=== PATIENT | female | born 1970 | race African-American/Black ===

== ENCOUNTER 2020-03-26 15:12 | Outpatient (CLI) | payer MEDICARE ==
[2020-03-27 03:07] LABS: SARS-CoV-2 MS2 Positive; SARS-CoV-2 N Gene Negative; SARS-CoV-2 S Gene Negative; SARS-CoV-2 by NAA Not Detected (NotDetected); SARS-CoV-2 orf1ab Negative
== END 2020-03-26 15:13 | disposition home or self-care (01) ==
LOC: LABBT 15:12
PROVIDERS: ATTEND Specialist
DX: Z01.812 Encounter for preprocedural laboratory examination (principal); E66.09 Other obesity due to excess calories; Z20.828 Contact with and (suspected) exposure to other viral communicable diseases
CPT/HCPCS: 87635; U0003

== ENCOUNTER 2020-03-29 10:30 | Outpatient (CLI) | payer MEDICARE ==
--- NOTE | 2020-03-29 13:13 | RAD ---
EXAM: XR UGI Air Contrast PROVIDED CLINICAL HISTORY: Obesity. Patient reports hiatal hernia and gastroesophageal reflux. COMPARISON: None FINDINGS: Double contrast upper GI was performed in usual fashion. Esophagus demonstrates normal esophageal per istalsis. No mucosal irregularity is seen. There is no focal narrowing seen in the esophagus. No hiatal hernia is appreciated on this exam. No gastroesophageal reflux is noted during this exam. The stomach, duodenal bulb, duodenum, and visualized proximal small bowel have a normal appearance. Contrast is seen in the colon on overhead radiographs. D[employer] image demonstrates a nonspecific bowel gas pattern. Surgical clips overlie the right upper quad rant. No suspicious calcifications are seen. Osseous structures have a normal appearance. IMPRESSION: 1. Normal upper GI without hiatal hernia visualized, and no gastroesophageal reflux was seen during t he exam. 2. Contrast is seen in the colon on the overhead images obtained immediately after this exam.
== END 2020-03-29 10:31 | disposition home or self-care (01) ==
LOC: RAD 10:30
PROVIDERS: ATTEND Specialist
DX: E66.09 Other obesity due to excess calories (principal)
CPT/HCPCS: 36415; 74246; 80053; 80061; 82306; 82607; 82728; 82746; 83036; 83540; 83970; 84425; 84436; 84443; 84479; 84480; 85025; 86769

== ENCOUNTER 2020-04-12 13:59 | Outpatient (CLI) | payer MEDICARE | END 2020-04-12 14:00 | disposition home or self-care (01) | LOC: DTY/OP 13:59 | PROVIDERS: ATTEND Specialist | DX: Z01.818 Encounter for other preprocedural examination (principal); E66.01 Morbid (severe) obesity due to excess calories | CPT/HCPCS: 97802 ==

== ENCOUNTER 2020-07-15 12:40 | Outpatient (CLI) | payer MEDICARE ==
[2020-07-15 14:24] LABS: #Basophils 0.1 10x3/uL (0.0-0.2); #Eosinphils 0.1 10x3/uL (0.0-0.5); #Monocytes 0.6 10x3/uL (0.0-1.1); #Neutrophils 4.7 10x3/uL (1.5-8.4); %Basophils 0.7 % (0.0-2.0); %Eosinophils 1.5 % (0.0-6.0); %Lymphocytes 37.2 % (18.0-47.0); %Monocytes 6.9 % (0.0-10.0); %Neutrophils 53.4 % (40.0-75.0); Hemoglobin 12.6 g/dL (12.0-15.5); Mean Corpuscular HGB CONC 31.3 g/dL (32.0-36.0); Mean Corpuscular Hemoglobin 25.8 pg (27.0-33.0); Mean Corpuscular Volume 82.4 fl (81.6-98.3); Platelet Count 325 10x3/uL (150-450); RBC Distribution Width 15.3 % (11.5-14.5); Red Blood Cell (RBC) Count 4.89 10x6/uL (3.90-5.03); White Blood Cell (WBC) Count 8.9 10x3/uL (3.5-10.5)
[2020-07-15 14:48] LABS: Anion Gap 16 mmol/L (10-20); BUN (Urea Nitrogen) 10 mg/dL (7.0-18.7); Calc. Creatinine Clearance 0 mL/min (70-130); Calcium 9.3 mg/dL (7.8-10.44); Carbon Dioxide 23 mmol/L (22-29); Chloride 102 mmol/L (98-107); Glucose 89 mg/dL (70-105); Potassium 4.2 mmol/L (3.5-5.1); Sodium 137 mmol/L (136-145)
[2020-07-16 04:20] LABS: SARS-CoV-2 PCR by NAA Not Detected (NotDetected)
== END 2020-07-15 12:41 | disposition home or self-care (01) ==
LOC: LABBT 12:40
PROVIDERS: ATTEND Specialist
DX: Z01.812 Encounter for preprocedural laboratory examination (principal); Z20.822 Contact with and (suspected) exposure to COVID-19; E66.09 Other obesity due to excess calories; I10 Essential (primary) hypertension; Z68.36 Body mass index [BMI] 36.0-36.9, adult
CPT/HCPCS: 80048; 85025; U0003; U0005; 87635

== ENCOUNTER 2020-07-15 13:00 | Inpatient (IN) | payer MEDICARE ==
[2020-07-17 10:42] VITALS: BMI 39.2
[2020-07-18] MEDS ORDERED: cefOXitin Sodium/Dextrose 2 GM/50 ML BAG ONE (06:17)
[2020-07-18] MEDS ORDERED: Acetaminophen 500 MG TAB ONE (06:17)
[2020-07-18] MEDS ORDERED: Ketorolac Tromethamine 30 MG/ML VIAL ONE (06:17)
[2020-07-18] MEDS ORDERED: Fentanyl 100 MCG/2 ML VIAL ONE ×3 (06:25→11:11)
[2020-07-18] MEDS ORDERED: Dexmedetomidine 200 MCG/2 ML VIAL ONE (06:25)
[2020-07-18] MEDS ORDERED: Lidocaine 1% w/Epinephrine 1:100K 20 ML VIAL ONE (06:34)
[2020-07-18] MEDS ORDERED: Bupivacaine 0.25% HCL 30 ML VIAL ONE (06:34)
[2020-07-18] MEDS ORDERED: Midazolam HCl 2 mg/2 ml Vial ONE (07:21)
[2020-07-18] MEDS ORDERED: Glycopyrrolate 0.2 MG/ML 5 ML SYRINGE ONE ×2 (07:38)
[2020-07-18] MEDS ORDERED: PROPOFOL 200 MG/20 ML VIAL ONE (07:38)
[2020-07-18] MEDS ORDERED: Lidocaine 1% PF 5 ML VIAL ONE (07:38)
[2020-07-18] MEDS ORDERED: Ondansetron PF 4 MG/2 ML Vial ONE (07:38)
[2020-07-18] MEDS ORDERED: ePHEDrine 50 MG/ML VIAL ONE (07:38)
[2020-07-18] MEDS ORDERED: Dexamethasone 20 MG/5 ML VIAL ONE (07:38)
[2020-07-18] MEDS ORDERED: Rocuronium Bromide 10 MG/ML (10ML VIAL) ONE (07:38)
[2020-07-18] MEDS ORDERED: Dextrose 5% in Water 1,000 ML IV PRN (09:51)
[2020-07-18] MEDS ORDERED: Dextrose 50% Abboject 50 ML SYRINGE SLOW IVP PRN (09:51)
[2020-07-18] MEDS ORDERED: Promethazine HCl 25 MG/ML VIAL IM PRN (09:51)
[2020-07-18] MEDS ORDERED: hydrALAZINE 20 MG/ML VIAL SLOW IVP PRN (09:51)
[2020-07-18] MEDS ORDERED: diphenhydrAMINE 50 MG/ML VIAL IVP PRN (09:51)
[2020-07-18] MEDS ORDERED: Promethazine HCl 25 MG/ML VIAL ONE (10:01)
[2020-07-18] MEDS ORDERED: Pantoprazole 40 MG VIAL IVP SCH (10:15)
[2020-07-18] MEDS ORDERED: Carvedilol 3.125 MG TAB PO SCH (10:15)
[2020-07-18] MEDS ORDERED: Sodium Chloride 0.9% (PF) 10 ML VIAL FS PRN (10:15)
[2020-07-18] MEDS: Ketorolac Tromethamine 30 MG/ML VIAL IVP SCH ×3 (11:46→23:07)
[2020-07-18] MEDS: D5 1/2 NS w/20 mEq KCL 1,000 ML IV SCH ×2 (11:47→23:06)
[2020-07-18] MEDS: Hydrocodone-Acetamin 15 ML UDCUP PO PRN ×2 (13:41→18:26)
[2020-07-18] MEDS: Meperidine HCl/PF 25 MG/ML VIAL SLOW IVP PRN ×3 (13:48→20:14)
[2020-07-18] MEDS: Ondansetron PF 4 MG/2 ML Vial IVP PRN (13:48)
[2020-07-18] MEDS: Carvedilol 3.125 MG TAB PO SCH (20:14)
[2020-07-18] MEDS ORDERED: Enoxaparin Sodium 40 MG/0.4 ML SYRINGE SC SCH (21:00)
[2020-07-19] MEDS: Hydrocodone-Acetamin 15 ML UDCUP PO PRN ×3 (00:14→10:52)
[2020-07-19] MEDS: D5 1/2 NS w/20 mEq KCL 1,000 ML IV SCH ×2 (00:44→06:31)
[2020-07-19] MEDS: Ketorolac Tromethamine 30 MG/ML VIAL IVP SCH (05:04)
[2020-07-19 06:39] LABS: Hemoglobin 11.5 g/dL (12.0-16.0); Mean Corpuscular HGB CONC 31.7 g/dL (32.0-36.0); Mean Corpuscular Hemoglobin 26.9 pg (27.0-31.0); Mean Corpuscular Volume 84.8 fL (78.0-98.0); Mean Platelet Volume 10.2 fL (7.4-10.4); Platelet Count 236 thou/uL (130-400); RBC Distribution Width 14.2 % (11.5-14.5); Red Blood Cell (RBC) Count 4.28 mill/uL (4.20-5.40); White Blood Cell (WBC) Count 13.4 thou/uL (4.8-10.8)
[2020-07-19 06:59] LABS: Anion Gap 13 mmol/L (10-20); BUN (Urea Nitrogen) 9 mg/dL (7.0-18.7); Calc. Creatinine Clearance 146 mL/min (70-130); Calcium 7.6 mg/dL (7.8-10.44); Carbon Dioxide 22 mmol/L (22-29); Chloride 104 mmol/L (98-107); Glucose 110 mg/dL (70-105); Potassium 3.9 mmol/L (3.5-5.1); Sodium 135 mmol/L (136-145)
[2020-07-19 07:02] LABS: Eosinophils 1 % (0-10); Lymphocytes 27 % (21-51); MDiff Complete? YES; Monocytes 5 % (0-10); Neutrophil 66 % (42-75); Reactive Lymphocytes 1 % (0-10)
[2020-07-19] MEDS: Carvedilol 3.125 MG TAB PO SCH (08:48)
[2020-07-19] MEDS: Ondansetron PF 4 MG/2 ML Vial IVP PRN (08:51)
[2020-07-19] MEDS ORDERED: Pantoprazole 40 MG VIAL IVP SCH (09:00)
[2020-07-19 10:28] VITALS: BP 113/74; TEMP 98
== END 2020-07-19 11:41 | disposition home or self-care (01) | DRG 621 ==
LOC: SURG A 07-18 05:45 → SURG B 07-18 11:39 → EDSTATUS 07-18 13:00
PROVIDERS: ADMIT Specialist; ATTEND Specialist
PROC: 0D164ZA Bypass Stomach to Jejunum, Percutaneous Endoscopic Approach (ICD-10-PCS; principal; 2020-07-18)
DX: E66.01 Morbid (severe) obesity due to excess calories (principal); Z20.822 Contact with and (suspected) exposure to COVID-19; I10 Essential (primary) hypertension; K44.9 Diaphragmatic hernia without obstruction or gangrene; K21.9 Gastro-esophageal reflux disease without esophagitis; Z68.39 Body mass index [BMI] 39.0-39.9, adult; Z79.899 Other long term (current) drug therapy; Z88.5 Allergy status to narcotic agent; Z88.8 Allergy status to other drugs, medicaments and biological substances; Z90.49 Acquired absence of other specified parts of digestive tract
CPT/HCPCS: 36415; 80048; 85025; 87635; C9113; J0694; J1100; J1650; J1885; J2175; J2250; J2405; J2550; J2704; J3010; J3480; J3490; S0020; U0003; U0005

== ENCOUNTER 2020-08-07 14:24 | Outpatient (CLI) | payer MEDICARE | END 2020-08-07 14:25 | disposition home or self-care (01) | LOC: BICMAMMO 14:24 | PROVIDERS: ATTEND Specialist | DX: Z12.31 Encounter for screening mammogram for malignant neoplasm of breast (principal) | CPT/HCPCS: 77063; 77067 ==